=== PATIENT | female | born 2005 | race Caucasian/White ===

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

== ENCOUNTER 2025-07-24 13:53 | Emergency (ER) | payer SELFPAY ==
[2025-07-24] VITALS (10 sets, daily range): BP systolic 128–138; BP diastolic 79–95; PULSE 81–110; RESP 15–18; TEMP 36.7; O2SAT 97–100
--- NOTE | ~2025-07-24 | CT_ITS ---
EXAMINATION: CT soft tissue neck w con COMPARISON: None HISTORY: trauma TECHNIQUE: Axial images were obtained with IV contrast. Sagittal, coronal reconstruction images were obtained from the axial views. Omnipaque 370, [address] scan performed using dose optimization techniques including the following automated exposure control; adjustment of mA and/or kV; use of iterative reconstruction technique. Automatic exposure control was used to reduce radiation dose. Permanent radiation dose record is archived to PACS. FINDINGS: Visualized brain parenchyma unremarkable. Visualized optic globes unremarkable No thickening of the prevertebral space or asymmetry of the airway. No asymmetry of the base of the tongue, the aryepiglottic folds or the vocal cords.. The parapharyngeal spaces are intact. No asymmetry of the tonsillar tissue. No thyroid nodules. No lymphadenopathy anterior superior mediastinum. No thickening of the esophagus The parotid and submandibular glands are unremarkable. Prominent jugulodigastric lymph nodes. No posterior cervical or supraclavicular lymphadenopathy. The lung apices are unremarkable. No sclerotic or lytic lesions. No significant sinusitis. Correlating with the palpable area right side there is no abnormal mass or mass effect with no abnormal flow appreciated. The soft tissues appear unremarkable. IMPRESSION: No posttraumatic process identified. No CT correlate to the marked area on the right side. If pain persists MRI is recommended to assess with contrast Reviewed, dictated and finalized at location A. IMPRESSION: No posttraumatic process identified. No CT correlate to the marked area on the right side. If pain persists MRI is recommended to assess with cont rast
--- OUTSIDE RECORDS SUMMARY | 2025-07-24 13:55 | XMS_ITS | Encounter Summary ---
Author Organization [facility] Address [facility] [place] [address] Care Team Providers Care Stripper Shovel Operator Name Role Phone Gisell Presley MD Primary Care Provider [phone] None, Provider Primary Care Provider Unavaila ble Encounter Details Date Type Department Care Team (Late st Contact Info) Description 09/18/[address] [facility] [address] [place] [address] , Generic Conversion, Social History Tobacco Use Types Packs/Day Years Used Date Smoking Tobacco: Never Assessed Comments Unknown Sex and Gender Information Value Date Recorded Sex Assigned at Not on file Legal Sex Female 10:13 PM [employer] Gender Identity Not on file Sexual Orientation Not on file documented as of this encounter Plan of Treatment Not on file documented as of this encounter Visit Diagnoses Not on filedocumented in this encounter Additional Health Concerns Infection Onset Date Last Indicated Resolved Time COVID-19 Rule Out 05/19/2020 05/19/2020 05/22/2020 12:03 PM CDT documented as of this encounter Care Teams Stripper Shovel Operator Relationship Specialty Start Date End Date Gisell Presley MD [address] [place] [id number] PCP - General PEDIATRICS 07/16/19 11/23/19 None, ProviderMD PCP - General 11/24/19 documented as of this encounter
--- OUTSIDE RECORDS SUMMARY | 2025-07-24 13:55 | XMS_ITS | Clinical Summary ---
Author Organization [facility] Address [facility] [place] [address] Care Team Providers Care Medical Technologist Microbiology Name Role Phone None, Provider MD Primary Care Provider Unavaila ble Allergies No known active allergies Medications fluticasone propionate (FLONASE) 50 MCG/ACT nasal spray 1 spray by Nasal route daily. 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 Gender Identity Not on file Sexual Orientation Not on file Last Filed Vital Signs Vital Sign Reading Time Taken Comments Blood Pressure 105/64 02/12/2022 3:00 AM CDT Pulse 86 02/12/2022 3:00 AM CDT Temperature 37 C (98.6 F) 02/12/2022 3:00 AM CDT Respiratory Rate 18 02/12/2022 3:00 AM CDT Oxygen Saturation 98% 02/12/2022 3:00 AM CDT Inhaled Oxygen Concentration - - Weight 61.2 kg (135 lb) 02/11/2022 3:11 PM CDT Height 160 cm (5' 3) 02/11/2022 3:11 PM CDT Body Mass Index 23.91 02/11/2022 3:11 PM CDT Plan of Treatment Health Maintenance Due Date Last Done Comments Hepatitis B Vaccines (3 of 3 - 3-dose series) 06/24/2005 04/29/2005, 02/04/2005 Annual Physical 2007 DTaP, Tdap and Td Vaccines (5 - Tdap) 2015 06/20/2010, 04/24/2006, 04/29/2005, Additional history exists HPV Vaccines (1 - 3-dose series) 2019 Meningococcal B Vaccine (1 of 2 - Standard) 2020 Hepatitis C 2022 COVID-19 Vaccine ( - season) 2025 Meningococcal Vaccine Aged Out 08/21/2016 No laurel silas eligible based on patient's age to complete this topic Pneumococcal Vaccine: Pediatrics (0 to 5 Years) and At-Risk Patients (6 to 49 Years) Aged Out No longer eligible based on patient's age to complete this topic RSV Immunizations Under 20 Months Aged Out No longer eligible based on patient's age to complete this topic Insurance Care Teams Medical Technologist Microbiology Relationship Specialty Start Date End Date None, Provider, PCP - General 11/24/19
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
[2025-07-24 14:49] LABS: Hematocrit 42.0 % (37.0-47.0); Hemoglobin 14.0 g/dL (12.0-15.0); Immature Granulocyte Percent A 0.7 % (0-0.5); Lymphocytes Absolute Auto 1.27 K/mm3 (0.9-3.2); Mean Corpuscular HGB Conc 33.3 g/dl (32-36); Mean Corpuscular Hemoglobin 27.7 pg (26-34); Mean Corpuscular Volume 83.2 fl (80-100); Nucleated Red Blood Cells Absolute Auto 0.000 K/mm3 (0.0-0.012); Nucleated Red Blood Cells Perc 0.0 % (0.0-0.2); Platelet Count Result 309 k/mm3 (150-375); Red Blood Count 5.05 M/mm3 (4.2-5.4); White Blood Count 18.9 K/mm3 (4.5-10.0)
[2025-07-24] MEDS: KETOROLAC 15 MG/ML VIAL (*BKC) IV PUSH (14:56)
[2025-07-24] MEDS: LACTATED RINGERS 1,000 ML 999 ML IV CONT (14:56)
[2025-07-24 15:01] LABS: Alanine Aminotransferase 26 U/L (6-35); Albumin Level 5.2 g/dL (3.5-5.1); Alkaline Phosphatase 82 U/L (38-126); Anion Gap 13 mmol/L (4-12); Aspartate Amino Transferase 38 U/L (14-36); Bilirubin,Total 1.6 mg/dL (0.2-1.3); Blood Urea Nitrogen 10 mg/dL (7-17); Calcium 9.9 mg/dL (8.4-10.2); Carbon Dioxide 27 mmol/L (22-30); Chloride 100 mmol/L (98-107); Estimated CRCL calculation 108 ml/min; Estimated Glomerular Filt Rate > 60; Glucose 93 mg/dL (65-110); INR 1.1; Partial Thromboplastin Time 27.7 Seconds (22.3-36.8); Potassium 4.1 mmol/L (3.4-5.0); Prothrombin Time 13.9 Seconds (11.1-14.7); Sodium 140 mmol/L (137-145); Total Protein 9.1 g/dL (6.3-8.2)
[2025-07-24 15:10] LABS: Strep Group A RT-PCR DETECTED (Negative)
[2025-07-24 15:25] LABS: Influenza A QL RT-PCR Negative (Negative); Influenza B QL RT-PCR Negative (Negative); RSV RNA, RT-PCR Negative (Negative); SARS-CoV-2 RNA PCR Negative (Negative)
== END 2025-07-24 16:13 | disposition home or self-care (01) ==
PROVIDERS: Emergency Provider Emergency Medicine
DX: J02.0 Streptococcal pharyngitis (principal); Z20.822 Contact with and (suspected) exposure to COVID-19
CPT/HCPCS: 36415; 70491; 80053; 85025; 85610; 85730; 87637; 87651; 96361; 96374; 99284; A9270; J1885; J7120; Q9967